=== PATIENT | male | born 1995 | race Caucasian/White ===

== ENCOUNTER 2018-11-15 17:22 | Emergency (ER) | payer OTHER ==
[~2018-11-15] VITALS: Ht 180.3 cm; Wt 75.0 kg
[2018-11-15] MEDS ORDERED: LIDOCAINE 1% MDV 20ML VIAL IM ONE (18:15)
[2018-11-15 18:56] VITALS: BP 133/78
== END 2018-11-15 19:14 | disposition home or self-care (01) ==
LOC: M ED 17:22
DX: S61.412A Laceration without foreign body of left hand, initial encounter (principal); W26.0XXA Contact with knife, initial encounter; Y92.009 Unspecified place in unspecified non-institutional (private) residence as the place of occurrence of the external cause; Y93.89 Activity, other specified

== ENCOUNTER → 2020-06-17 | Outpatient (CLI) | payer OTHER ==
[~2020-06-17] MED LIST: METHACHOLINE KIT (J7674) INH ONE
--- NOTE | 2020-07-01 14:04 | PFTRPT ---
Height: 71.50 Inches Weight: 172.00 Lbs BSA: 1.99 Diagnosis: R05 DATE OF STUDY: 06/17/2020 ORDERED BY: Karen Quintana N.P. QUALITY: Study of excellent technical quality. PROCEDURE: Under protocol, methacholine was administered. A dose of 2.5 mg or 13.875 CDUs, a 30% decline of the FEV1 was noted. PC of 0.44 is significant. Flow rates did return to baseline post-bronchodilator administration. IMPRESSION: Positive methacholine challenge study. MTDD
== END ==
LOC: M CARPUL 12:37
PROVIDERS: ATTEND Nurse Practitioner Family
DX: R05 Cough (principal)

== ENCOUNTER → 2020-12-17 | Outpatient (CLI) | payer OTHER ==
--- NOTE | 2020-12-17 17:29 | REP ---
INDICATION: MILD PERSISTENT ASTHMA,UNCOMPLICATED. COMPARISON: None. TECHNIQUE: Helical scanning is acquired. 3 mm axial images are generated. Coronal and sagittal MPR and coronal MIP images are generated. FINDINGS: Digital preliminary cell attendant helper radiograph is unremarkable. Axial images demonstrate clear well inflated lung serna. There is no evidence of infiltrate, atelectasis, pleural effusion, or significant pulmonary nodule. No mass lesion is seen. No pericardial effusion is seen. No hilar or mediastinal mass or adenopathy is observed. No extra thoracic adenopathy or mass lesion is seen. Normal adrenal glands are visible. The visualized upper abdominal structures are unremarkable. Bone window settings show no abnormality. Maximum intensity projection and MPR images show no additional abnormality. No endobronchial lesion is seen. IMPRESSION: Negative CT study of the chest. <Electronically signed by Carlos Hernandez > 12/17/20 [id number]
== END ==
LOC: M RAD 15:10
PROVIDERS: ATTEND Nurse Practitioner Family
DX: J45.30 Mild persistent asthma, uncomplicated (principal)

== ENCOUNTER 2021-11-07 22:38 | Emergency (ER) | payer OTHER ==
[~2021-11-07] VITALS: Ht 182.9 cm; Wt 77.4 kg
[2021-11-07 22:38] VITALS: BP 133/87
[2021-11-07] MEDS ORDERED: TRAZ-252 PO (22:43)
[2021-11-07] MEDS ORDERED: ALBU8.5H INH (22:43)
== END 2021-11-08 00:37 | disposition left against medical advice (07) ==
LOC: M ED 22:38
DX: Z53.21 Procedure and treatment not carried out due to patient leaving prior to being seen by health care provider (principal)

== ENCOUNTER → 2022-01-30 | Outpatient (CLI) | payer OTHER ==
[~2022-01-30] MED LIST changes: +ALBU8.5H INH; -METHACHOLINE KIT (J7674) INH ONE; +TRAZ-252 PO
== END ==
LOC: M RAD 13:15
PROVIDERS: ATTEND Internal Medicine Pulmonary Disease
DX: U09.9 Post COVID-19 condition, unspecified (principal)